=== PATIENT | female | born 1980 | race African-American/Black ===

== ENCOUNTER 2017-08-03 19:08 | Emergency (ER) | payer MEDICAID ==
[2017-08-03] MEDS ORDERED: Ondansetron ODT 4 MG TAB ONE (22:02)
== END 2017-08-03 22:13 | disposition home or self-care (01) ==
LOC: ERS 19:08
DX: B34.9 Viral infection, unspecified (principal); F17.210 Nicotine dependence, cigarettes, uncomplicated; F41.9 Anxiety disorder, unspecified; Z79.899 Other long term (current) drug therapy
CPT/HCPCS: 99283; Q0162

== ENCOUNTER 2025-05-18 16:19 | Emergency (ER) | payer OTHER, SELFPAY ==
[~2025-05-18 16:19] MED LIST: Iopamidol-370 76% 500 ML MDV (1 ML CHARGE) ONE
[2025-05-18 16:54] LABS: #Basophils 0.03 10x3/uL (0.0-0.2); #Eosinophils 0.33 10x3/uL (0.0-0.7); #Monocytes 0.37 10x3/uL (0.11-0.59); #Neutrophils 4.79 10x3/uL (1.40-6.50); %Basophils 0.3 % (0.0-1.0); %Eosinophils 3.7 % (0.0-10.0); %Lymphocytes 38.5 % (21.0-51.0); %Monocytes 4.1 % (0.0-10.0); %Neutrophils 53.2 % (42.0-75.0); Hematocrit 42.2 % (36.0-47.0); Hemoglobin 13.5 g/dL (12.0-16.0); Mean Corpuscular Hemoglobin 30.7 pg (27.0-31.0); Mean Corpuscular Volume 95.9 fL (78.0-98.0); Platelet Count 303 10x3/uL (130-400); Red Blood Cell (RBC) Count 4.40 mill/uL (4.20-5.40); White Blood Cell (WBC) Count 9.01 10x3/uL (4.8-10.8)
[2025-05-18 17:05] LABS: ALT (SGPT) Less than 7 U/L (Less than 34); AST (SGOT) 19 U/L (11-34); Albumin 4.2 g/dL (3.1-4.5); Alkaline Phosphatase 85 U/L (40-110); Anion Gap 12 mmol/L (10-20); BUN (Urea Nitrogen) 9 mg/dL (7.0-18.7); Bilirubin, Total 0.6 mg/dL (0.3-1.2); Calc. Creatinine Clearance 0 mL/min (70-130); Calcium 9.2 mg/dL (7.8-10.44); Carbon Dioxide 25 mmol/L (22-29); Chloride 108 mmol/L (98-107); Globulin 3.1 g/dL (2.4-3.5); Glucose 123 mg/dL (70-105); Potassium 4.3 mmol/L (3.5-5.1); Sodium 141 mmol/L (136-145)
[2025-05-18 17:08] LABS: INR-International Normal Ratio 1.0; PTT 29.5 sec (22.9-36.1); Prothrombin Time 13.5 sec (12.0-14.7)
[2025-05-18] MEDS ORDERED: Aspirin Chewable 81 MG TAB ONE (18:11)
== END 2025-05-18 20:29 | disposition short-term general hospital (02) ==
LOC: ERS 16:19
DX: I63.9 Cerebral infarction, unspecified (principal); F17.210 Nicotine dependence, cigarettes, uncomplicated
CPT/HCPCS: 0042T; 36416; 70450; 70496; 70498; 71045; 80053; 84484; 85025; 85610; 85730; 93005; Q9967